=== PATIENT | male | born 1950 | race Caucasian/White ===

== ENCOUNTER → 2021-03-26 | Outpatient (CLI) | payer MEDICAID, OTHER | END | disposition home or self-care (01) | LOC: LABWHC1 09:23 | PROVIDERS: ATTEND Emergency Medicine | DX: Z03.818 Encounter for observation for suspected exposure to other biological agents ruled out (principal); Z20.822 Contact with and (suspected) exposure to COVID-19 | CPT/HCPCS: 87635 ==

== ENCOUNTER → 2021-03-27 | Outpatient (CLI) | payer MEDICAID, OTHER | END | disposition home or self-care (01) | LOC: LABWHC1 09:25 | PROVIDERS: ATTEND Emergency Medicine | DX: Z20.822 Contact with and (suspected) exposure to COVID-19 (principal) | CPT/HCPCS: 87635 ==

== ENCOUNTER 2023-07-22 10:44 | Day surgery (SDC) | payer MEDICARE, OTHER ==
[~2023-07-22 10:44] MED LIST: LACTATED RINGERS 1,000 ML IV SCH
[2023-07-22] MEDS: LACTATED RINGERS 1,000 ML IV SCH (10:58)
[2023-07-22 11:39] VITALS: TEMP 98.3
[2023-07-22] MEDS ORDERED: PROPOFOL 10 MG/ML 20 ML VIAL IV ONE (11:57)
--- NOTE | 2023-07-22 12:15 | P.PCN ---
Date of Procedure: 07/22/23 Procedure(s) Performed: BRIEF HISTORY: Patient is a 73-year-old pleasant white male scheduled for an elective colonoscopy as a part of screening for colon cancer. PROCEDURE PERFORMED: Colonoscopy. PREOPERATIVE DIAGNOSIS: Screening for colon cancer. IV sedation per Anesthesia. PROCEDURE: After informed consent was obtained, the patient, was brought into the endoscopy unit. IV sedation was administered by Anesthesia under continuous monitoring. Digital rectal examination was normal. Initially the Olympus CF-160 flexible video colonoscope was then inserted in the rectum, gradually advanced into the cecum without any difficulty. Careful examination was performed as the scope was gradually being withdrawn. Ileocecal valve and the appendiceal orifice were visualized and appeared normal. Prep was excellent. Mucosa of the cecum, ascending colon, transverse colon, descending colon, sigmoid colon, and rectum appeared normal. scattered sigmoid diverticula cyst.Retroflexion was performed in the rectum and no lesions were seen. The patient tolerated the procedure well. IMPRESSION: Normal-appearing colon from rectum to cecum with no evidence of colorectal neoplasia Scattered sigmoid diverticulosis. RECOMMENDATIONS: Findings of this examination were discussed with the patient as well as his family. He was advised to have a repeat screening colonoscopy at age 82.
[2023-07-22 13:07] VITALS: BP 124/67; PULSE 64; RESP 14
== END 2023-07-22 12:58 | disposition home or self-care (01) ==
LOC: ORWHC2ENDO 10:44
PROVIDERS: ATTEND Internal Medicine Gastroenterology
DX: Z12.11 Encounter for screening for malignant neoplasm of colon (principal); K57.30 Diverticulosis of large intestine without perforation or abscess without bleeding; I10 Essential (primary) hypertension; E78.5 Hyperlipidemia, unspecified; Z79.899 Other long term (current) drug therapy
CPT/HCPCS: J2704; G0121

== ENCOUNTER → 2024-10-06 | Outpatient (CLI) | payer MEDICARE, OTHER ==
--- NOTE | 2024-10-06 12:19 | US ---
EXAMINATION TYPE: US kidneys/renal and bladder DATE OF EXAM: 10/06/2024 COMPARISON: NONE CLINICAL INDICATION: Male, 74 years old with history of N18.30 CHRONIC KIDNEY DISEASE, STAGE 3 UNSPEC IFIED; CKD TECHNIQUE: Grayscale imaging of the bilateral kidneys and urinary bladder: FINDINGS: EXAM MEASUREMENTS: Right Kidney: 9.9 x 4.9 x 4.7 cm Left Kidney: 10.1 x 5.6 x 5.5 cm Right Kidney: Elongated cystic area seen at the midpole measuring 3.1 x 1.6 x 0.9 cm. An additional tiny 1.2 cm cortical cyst at the lower pole. No hydronephrosis. Left Kidney: No hydronephrosis or masses seen Bladder: Appears anechoic Bilateral Jets seen: Yes IMPRESSION: 1. An elongated 3.1 x 1.6 x 0.9 cm cystic area at the central mid pole right kidney. Unclear if this represents a parapelvic cyst or dilated calyx. No mass or shadowing stone is seen by ultrasound. Jono mmend 6 month follow-up ultrasound to reassess. 2. No hydronephrosis on either side. [facility], Workstation: [employer]ly[employer] [email or web address], 10/06/2024 12:17 PM
== END | disposition home or self-care (01) ==
LOC: RADUSWWP 09:53
PROVIDERS: ATTEND Family Medicine
DX: N18.30 Chronic kidney disease, stage 3 unspecified (principal); N28.1 Cyst of kidney, acquired
CPT/HCPCS: 76770